=== PATIENT | male | born 1985 | race Asian ===

== ENCOUNTER 2018-07-06 16:30 | Emergency (ER) | payer OTHER ==
[2018-07-06] MEDS: AZITHROMYCIN 250 MG TAB PO (19:01)
== END 2018-07-06 20:57 | disposition home or self-care (01) ==
LOC: E/R 16:30
DX: J40 Bronchitis, not specified as acute or chronic (principal)
CPT/HCPCS: 71045; 99283

== ENCOUNTER 2018-07-10 04:16 | Emergency (ER) | payer OTHER | END 2018-07-10 05:18 | disposition home or self-care (01) | LOC: FTE 04:16 | DX: J40 Bronchitis, not specified as acute or chronic (principal) | CPT/HCPCS: 99283; Z7502 ==